=== PATIENT | female | born 1965 | race African-American/Black ===

== ENCOUNTER 2023-07-14 13:09 | Inpatient (IN) | payer SELFPAY ==
[~2023-07-14] VITALS: Ht 172.7 cm; Wt 94.5 kg
[2023-07-14 13:11] VITALS: BP 133/92; PULSE 104; RESP 18; TEMP 99.1; O2SAT 99
[2023-07-14 13:38] LABS: BASOPHILS # (AUTO) 0.1 K/uL (0.00-0.22); BASOPHILS % (AUTO) 1.3 % (0.0-2.0); EOSINOPHILS # (AUTO) 0.2 K/uL (0-0.4); EOSINOPHILS % (AUTO) 2.3 % (0.0-4.0); HEMATOCRIT 38.4 % (36-48); HEMOGLOBIN 12.6 g/dL (12.0-16.0); LYMPHOCYTES # (AUTO) 2.5 K/uL (2.5-16.5); LYMPHOCYTES % (AUTO) 33.1 % (20.5-51.1); MEAN CORPUSCULAR HEMOGLOBIN 28 pg (27-31); MEAN CORPUSCULAR HGB CONC 33 g/dL (33-37); MEAN CORPUSCULAR VOLUME 85.7 fL (80-94); MONOCYTES # (AUTO) 0.7 K/uL (0.8-1.0); MONOCYTES % (AUTO) 9.2 % (1.7-9.3); NEUTROPHILS % (AUTO) 54.1 % (42.2-75.2); PLATELET COUNT (AUTO) 325 K/uL (140-450); RED BLOOD CELL COUNT(AUTO) 4.48 MIL/uL (4.20-5.40); RED CELL DISTRIBUTION WIDTH 14.4 % (11.6-13.7); WHITE BLOOD COUNT (AUTO) 7.5 K/uL (4.8-10.8)
[2023-07-14 13:49] LABS: ANION GAP 9.7 (8-16); CARBON DIOXIDE 29.2 mmol/L (21-32); CREATININE 0.9 mg/dL (0.6-1.3); POTASSIUM 3.9 mmol/L (3.5-5.1)
[2023-07-14 14:07] LABS: ALANINE AMINOTRANSFERASE 21 U/L (12-78); ALBUMIN 3.2 g/dL (3.4-5.0); ALKALINE PHOSPHATASE 74 U/L (50-136); ASPARTATE AMINOTRANSFERASE 15 U/L (15-37); BILIRUBIN,DIRECT 0.1 mg/dL (0.0-0.3); TOTAL BILIRUBIN 0.2 mg/dL (0.0-1.0); TOTAL PROTEIN, SERUM 8.2 g/dL (6.4-8.2)
[2023-07-14] MEDS ORDERED: ASPIRIN 325 MG TAB PO ONE (14:35)
[2023-07-14] MEDS ORDERED: ASPIRIN 325 MG TAB ONE (14:41)
[2023-07-14] MEDS ORDERED: HYDROcodone/APAP 5/325 MG 1 TAB TAB PO ONE (15:45)
[2023-07-14] MEDS ORDERED: CARV25TA PO (16:02)
[2023-07-14] MEDS ORDERED: LISI-487 PO (16:03)
[2023-07-14] MEDS ORDERED: ASPI-1822 PO (16:04)
[2023-07-14] MEDS ORDERED: [UNRECOGNIZED DRUG - CODE] PO (16:04)
[2023-07-14] MEDS ORDERED: LIP80 PO (16:05)
[2023-07-14] MEDS ORDERED: SLIDE SUBQ (16:05)
[2023-07-14] MEDS ORDERED: ACETAMINOPHEN 325 MG TAB PO PRN (17:05)
[2023-07-14] MEDS ORDERED: ONDANSETRON 4 MG/2 ML VIAL IVP PRN (17:05)
[2023-07-14] MEDS ORDERED: SEMA1PEN3 SQ (18:14)
[2023-07-14] MEDS ORDERED: GABA300C PO (18:14)
[2023-07-14] MEDS ORDERED: EZET10TA50 PO (18:14)
[2023-07-14] MEDS ORDERED: METF-713 PO (18:19)
[2023-07-14] MEDS ORDERED: TRAZ-343 PO (18:19)
[2023-07-14] MEDS ORDERED: PANT40EC PO (18:19)
[2023-07-14] MEDS ORDERED: HYDR-4004 PO (18:19)
[2023-07-14] MEDS ORDERED: DEXTROSE 50% 50 ML SYR IVP PRN (19:00)
[2023-07-14] MEDS: INSULIN LISPRO SLIDING SCALE 100 UNITS/ML VIAL SUBQ PRN (20:19)
[2023-07-14] MEDS: BLOOD GLUCOSE MONITORING 1 DEV DEV FS SCH (21:49)
[2023-07-14 23:24] VITALS: O2SAT 100
[2023-07-14] MEDS: HYDROcodone/APAP 5/325 MG 1 TAB TAB PO PRN (23:24)
[2023-07-14] MEDS ORDERED: traZODone 50 MG TAB PO SCH (23:40)
[2023-07-14] MEDS ORDERED: GABAPENTIN 300 MG CAP PO SCH (23:40)
[2023-07-14] MEDS ORDERED: carvediloL 12.5 MG TAB PO SCH (23:40)
[2023-07-15 02:29] VITALS: O2SAT 96
[2023-07-15] MEDS: BLOOD GLUCOSE MONITORING 1 DEV DEV FS SCH ×2 (06:58→11:29)
[2023-07-15 07:18] LABS: BASOPHILS # (AUTO) 0.1 K/uL (0.00-0.22); BASOPHILS % (AUTO) 1.3 % (0.0-2.0); EOSINOPHILS # (AUTO) 0.1 K/uL (0-0.4); EOSINOPHILS % (AUTO) 2.4 % (0.0-4.0); HEMATOCRIT 37.6 % (36-48); HEMOGLOBIN 12.3 g/dL (12.0-16.0); LYMPHOCYTES # (AUTO) 2.4 K/uL (2.5-16.5); LYMPHOCYTES % (AUTO) 38.5 % (20.5-51.1); MEAN CORPUSCULAR HEMOGLOBIN 28 pg (27-31); MEAN CORPUSCULAR HGB CONC 33 g/dL (33-37); MEAN CORPUSCULAR VOLUME 85.8 fL (80-94); MONOCYTES # (AUTO) 0.6 K/uL (0.8-1.0); MONOCYTES % (AUTO) 8.9 % (1.7-9.3); NEUTROPHILS % (AUTO) 48.9 % (42.2-75.2); PLATELET COUNT (AUTO) 311 K/uL (140-450); RED BLOOD CELL COUNT(AUTO) 4.38 MIL/uL (4.20-5.40); RED CELL DISTRIBUTION WIDTH 14.8 % (11.6-13.7); WHITE BLOOD COUNT (AUTO) 6.2 K/uL (4.8-10.8)
[2023-07-15 07:58] LABS: ANION GAP 13.3 (8-16); CALCIUM 8.9 mg/dL (8.5-10.1); CARBON DIOXIDE 26.5 mmol/L (21-32); CREATININE 0.8 mg/dL (0.6-1.3); POTASSIUM 3.8 mmol/L (3.5-5.1); TOTAL BILIRUBIN 0.3 mg/dL (0.0-1.0); TOTAL PROTEIN, SERUM 7.9 g/dL (6.4-8.2)
[2023-07-15 08:00] VITALS: PULSE 70; O2SAT 96
[2023-07-15] MEDS: INSULIN LISPRO SLIDING SCALE 100 UNITS/ML VIAL SUBQ PRN ×2 (08:25→11:35)
[2023-07-15 08:30] VITALS: BP 117/84; PULSE 84; RESP 18; TEMP 98.7; O2SAT 96
[2023-07-15] MEDS ORDERED: ASPIRIN 81 MG TAB.CHEW PO SCH ×2 (09:00)
[2023-07-15] MEDS ORDERED: GABAPENTIN 300 MG CAP PO SCH (09:00)
[2023-07-15] MEDS ORDERED: carvediloL 12.5 MG TAB PO SCH (09:00)
[2023-07-15] MEDS ORDERED: PANTOPRAZOLE 40 MG TABEC PO SCH (09:00)
[2023-07-15] MEDS ORDERED: lisinopriL 20 MG TAB PO SCH (09:00)
[2023-07-15 12:00] VITALS: BP 126/90; PULSE 83; PULSE 84; RESP 18; TEMP 97.6; O2SAT 96
[2023-07-15] MEDS: HYDROcodone/APAP 5/325 MG 1 TAB TAB PO PRN (13:31)
[2023-07-15 16:00] VITALS: BP 126/90; PULSE 83; RESP 18; TEMP 97.6
[2023-07-15] MEDS ORDERED: ATORVASTATIN 80 MG TAB PO SCH (21:00)
[2023-07-15] MEDS ORDERED: traZODone 50 MG TAB PO SCH (21:00)
[2023-07-15] MEDS ORDERED: INSULIN LANTUS 100 UNITS/ML 10 ML VIAL SUBQ SCH (21:00)
== END 2023-07-15 16:40 | disposition home or self-care (01) | DRG 313 ==
LOC: MED 13:09 → MMU 17:05 → MTU 07-15 06:32
PROVIDERS: ADMIT Family Medicine; ATTEND Family Medicine
DX: R07.89 Other chest pain (principal); I10 Essential (primary) hypertension; E78.5 Hyperlipidemia, unspecified; E11.42 Type 2 diabetes mellitus with diabetic polyneuropathy; G47.00 Insomnia, unspecified; Z90.710 Acquired absence of both cervix and uterus; Z87.891 Personal history of nicotine dependence; Z88.0 Allergy status to penicillin; Z86.73 Personal history of transient ischemic attack (TIA), and cerebral infarction without residual deficits
CPT/HCPCS: 36415; 71045; 80048; 80053; 80076; 82948; 83880; 84484; 85025; 85379; 87081; 93005; 99285; J1815

== ENCOUNTER 2023-10-24 17:22 | Emergency (ER) | payer SELFPAY ==
[~2023-10-24] VITALS: Ht 172.7 cm; Wt 95.3 kg
[~2023-10-24 17:22] MED LIST: ASPI-1822 PO; CARV25TA PO; EZET10TA50 PO; GABA300C PO; LIP80 PO; LISI-953 PO; METF-713 PO; PANT40EC PO; SEMA1PEN3 SQ; SLIDE SUBQ; TRAZ-343 PO
[2023-10-24 17:35] VITALS: BP 123/83; PULSE 97; RESP 16; TEMP 98.3; O2SAT 100
[2023-10-24] MEDS: LIDOCAINE MPF 1% 10 MG/ML VIAL INJ ONE (18:31)
[2023-10-24 18:35] VITALS: O2SAT 100
[2023-10-24 18:40] LABS: BASOPHILS # (AUTO) 0.1 K/uL (0.00-0.22); BASOPHILS % (AUTO) 1.3 % (0.0-2.0); EOSINOPHILS # (AUTO) 0.1 K/uL (0-0.4); HEMATOCRIT 36.2 % (36-48); HEMOGLOBIN 11.7 g/dL (12.0-16.0); LYMPHOCYTES % (AUTO) 31.5 % (20.5-51.1); MEAN CORPUSCULAR HEMOGLOBIN 28 pg (27-31); MEAN CORPUSCULAR HGB CONC 32 g/dL (33-37); MEAN CORPUSCULAR VOLUME 87.8 fL (80-94); MONOCYTES # (AUTO) 0.9 K/uL (0.8-1.0); NEUTROPHILS # (AUTO) 5.4 K/uL (1.8-7.7); NEUTROPHILS % (AUTO) 57.2 % (42.2-75.2); PLATELET COUNT (AUTO) 172 K/uL (140-450); RED BLOOD CELL COUNT(AUTO) 4.12 MIL/uL (4.20-5.40); WHITE BLOOD COUNT (AUTO) 9.5 K/uL (4.8-10.8)
[2023-10-24 18:43] LABS: ANION GAP 13.8 (8-16); CALCIUM 9.4 mg/dL (8.5-10.1); CARBON DIOXIDE 25.7 mmol/L (21-32); CREATININE 1.1 mg/dL (0.6-1.3); POTASSIUM 3.5 mmol/L (3.5-5.1)
[2023-10-24] MEDS ORDERED: SULF-59 PO (18:58)
== END 2023-10-24 19:07 | disposition home or self-care (01) ==
LOC: MED 17:22
DX: L03.031 Cellulitis of right toe (principal); E11.9 Type 2 diabetes mellitus without complications; L03.011 Cellulitis of right finger; I10 Essential (primary) hypertension; E78.5 Hyperlipidemia, unspecified; Z79.899 Other long term (current) drug therapy; Z79.4 Long term (current) use of insulin; Z79.82 Long term (current) use of aspirin; Z88.0 Allergy status to penicillin
CPT/HCPCS: 10060; 36415; 80048; 82948; 85025; 99283; J2001